=== PATIENT | female | born 1990 | race Caucasian/White ===

== ENCOUNTER 2018-08-28 14:11 | Emergency (ER) | payer MEDICAID ==
[~2018-08-28] VITALS: Ht 167.6 cm; Wt 87.5 kg
[~2018-08-28 14:11] MED LIST: PHEN-786 PO
[2018-08-28 15:01] LABS: BASOPHILS % (AUTO) 0.6 % (0-1); EOSINOPHILS # (AUTO) 0.1 X10'3 (0-0.9); EOSINOPHILS % (AUTO) 0.9 % (0-6); HEMATOCRIT 41.6 % (35.0-45.0); HEMOGLOBIN 13.6 g/dl (12.0-16.0); LYMPHOCYTES # (AUTO) 2.3 X10'3 (1.1-4.8); LYMPHOCYTES % (AUTO) 29.3 % (21-51); MEAN CORPUSCULAR HEMOGLOBIN 28.5 PG (27.0-31.0); MEAN CORPUSCULAR HGB CONC 32.7 % (33.0-36.5); MEAN CORPUSCULAR VOLUME 87.1 FL (78-98); MEAN PLATELET VOLUME 8.3 FL (7.4-10.4); MONOCYTES # (AUTO) 0.3 X10'3 (0-0.9); MONOCYTES % (AUTO) 3.8 % (2-12); NEUTROPHILS # (AUTO) 5.3 X10'3 (1.8-7.7); NEUTROPHILS % (AUTO) 65.4 % (42-75); PLATELET COUNT 379 X10'3 (140-440); RED BLOOD COUNT 4.77 X10'6 (4.20-5.60); RED CELL DISTRIBUTION WIDTH 13.7 % (11.5-14.5)
[2018-08-28 15:16] LABS: PARTIAL THROMBOPLASTIN TIME 28 SECONDS (22-32); PROTHROMBIN TIME 10.6 SECONDS (9.0-12.0)
[2018-08-28 15:17] LABS: ALANINE AMINOTRANSFERASE 23 U/L (12-78); ALBUMIN 3.8 G/DL (3.4-5.0); ALBUMIN/GLOBULIN RATIO 0.9 (1.1-1.5); ALKALINE PHOSPHATASE 70 IU/L (46-116); ANION GAP 12 (8-16); ASPARTATE AMINO TRANSFERASE 15 U/L (10-37); BILIRUBIN,TOTAL 0.3 MG/DL (0.1-1.0); BLOOD UREA NITROGEN 14 MG/DL (7-18); BUN/CREATININE RATIO 18.9 (6.6-38.0); CHLORIDE 101 MMOL/L (99-107); CREATININE 0.74 MG/DL (0.40-0.90); GLUCOSE 137 MG/DL (70-104); POTASSIUM 3.4 MMOL/L (3.5-5.1); SODIUM 139 MMOL/L (135-145); TOTAL CARBON DIOXIDE 25.7 MMOL/L (24-32); TOTAL PROTEIN 7.9 G/DL (6.4-8.2); eGFR > 90 ML/MIN
[2018-08-28] MEDS ORDERED: sucralfate 1 gm tablet PO ONE (15:35)
[2018-08-28] MEDS ORDERED: mag hydrox/Alum hydrox/simeth 30ml oral suspension PO ONE (15:35)
[2018-08-28] MEDS ORDERED: LIDOcaine Viscous 15ml cup PO ONE (15:35)
[2018-08-28] MEDS ORDERED: famotidine 20mg tablet PO ONE (15:35)
[2018-08-28 15:59] VITALS: BP 112/79
== END 2018-08-28 16:02 | disposition home or self-care (01) ==
LOC: ER 14:12
DX: R10.13 Epigastric pain (principal); F17.200 Nicotine dependence, unspecified, uncomplicated; Z88.6 Allergy status to analgesic agent; Z79.899 Other long term (current) drug therapy
CPT/HCPCS: 36415; 71045; 80053; 84484; 85025; 85610; 85730; 93005; 99284

== ENCOUNTER 2021-11-03 19:14 | Emergency (ER) | payer MEDICAID ==
[~2021-11-03] VITALS: Ht 167.6 cm; Wt 94.0 kg
[2021-11-03 19:38] VITALS: BP 141/90
[2021-11-03] MEDS ORDERED: AMOX500C2 PO (19:59)
[2021-11-03] MEDS ORDERED: IBUP-1986 PO (19:59)
[2021-11-03] MEDS ORDERED: HYDROcodone/acetaminophen 10/325mg tab PO ONE (20:00)
[2021-11-03] MEDS ORDERED: amoxicillin 250mg capsule PO ONE (20:00)
== END 2021-11-03 20:13 | disposition home or self-care (01) ==
LOC: ER 19:14
DX: K08.89 Other specified disorders of teeth and supporting structures (principal); K02.9 Dental caries, unspecified; F41.9 Anxiety disorder, unspecified; Z90.49 Acquired absence of other specified parts of digestive tract; Z88.8 Allergy status to other drugs, medicaments and biological substances; Z79.2 Long term (current) use of antibiotics; Z79.899 Other long term (current) drug therapy
CPT/HCPCS: 99283

== ENCOUNTER 2022-01-01 10:24 | Emergency (ER) | payer MEDICAID ==
[~2022-01-01] VITALS: Ht 167.6 cm; Wt 95.0 kg
[~2022-01-01 10:24] MED LIST changes: +IBUP-1986 PO
[2022-01-01 10:35] VITALS: BP 130/80
[2022-01-01] MEDS ORDERED: ibuprofen tablet 400 MG TABLET PO ONE (11:50)
== END 2022-01-01 13:04 | disposition home or self-care (01) ==
LOC: ER 10:24
DX: S93.402A Sprain of unspecified ligament of left ankle, initial encounter (principal); F41.9 Anxiety disorder, unspecified; F17.210 Nicotine dependence, cigarettes, uncomplicated; Z90.49 Acquired absence of other specified parts of digestive tract; W19.XXXA Unspecified fall, initial encounter; Y93.89 Activity, other specified; Y92.89 Other specified places as the place of occurrence of the external cause; Y99.8 Other external cause status
CPT/HCPCS: 73590; 73610; 99284

== ENCOUNTER 2022-09-04 06:48 | Day surgery (SDC) | payer MEDICAID ==
[2022-09-01 10:27] LABS: BASOPHILS % (AUTO) 0.6 % (0-1); EOSINOPHILS # (AUTO) 0.1 X10'3 (0-0.9); EOSINOPHILS % (AUTO) 1.8 % (0-6); LYMPHOCYTES # (AUTO) 2.3 X10'3 (1.1-4.8); LYMPHOCYTES % (AUTO) 29.6 % (21-51); MEAN CORPUSCULAR HEMOGLOBIN 22.6 PG (27.0-31.0); MEAN CORPUSCULAR HGB CONC 31.1 g/dL (33.0-36.5); MEAN CORPUSCULAR VOLUME 72.8 FL (78-98); MEAN PLATELET VOLUME 7.4 FL (7.4-10.4); MONOCYTES # (AUTO) 0.5 X10'3 (0-0.9); MONOCYTES % (AUTO) 6.2 % (2-12); NEUTROPHILS # (AUTO) 4.8 X10'3 (1.8-7.7); NEUTROPHILS % (AUTO) 61.8 % (42-75); PRE OP HEMATOCRIT 34.9 % (35.0-45.0); PRE OP PLATELET COUNT 378 X10'3 (140-440); RED CELL DISTRIBUTION WIDTH 17.9 % (11.5-14.5)
[2022-09-01 10:29] LABS: PRE OP HEMOGLOBIN 10.9 g/dL (12.0-16.0)
[2022-09-01 11:10] LABS: HCG SERUM QL NEGATIVE
[2022-09-01 11:28] LABS: ALBUMIN 3.9 G/DL (3.4-5.0); ALBUMIN/GLOBULIN RATIO 1.1 (1.1-1.5); ALKALINE PHOSPHATASE 84 IU/L (46-116); BLOOD UREA NITROGEN 11 MG/DL (7-18); BUN/CREATININE RATIO 17.7 (6.6-38.0); CALCIUM 8.6 MG/DL (8.5-10.1); CHLORIDE 103 MMOL/L (99-107); CREATININE 0.62 MG/DL (0.40-0.90); PRE OP ALT 30 U/L (30-65); PRE OP ANION GAP 9 (8-16); PRE OP AST 24 U/L (10-37); PRE OP BILIRUB, TOTAL 0.3 MG/DL (0.0-1.0); PRE OP GLUCOSE 91 MG/DL (70-104); PRE OP SODIUM 137 MMOL/L (135-145); TOTAL CARBON DIOXIDE 25.5 MMOL/L (24-32); TOTAL PROTEIN 7.6 G/DL (6.4-8.2); eGFR > 90 ML/MIN
[~2022-09-04] VITALS: Ht 167.6 cm; Wt 93.1 kg
[2022-09-04] VITALS (9 sets, daily range): BP systolic 94–127; BP diastolic 52–79
[~2022-09-04 06:48] MED LIST changes: -IBUP-1986 PO; +NO HOME MEDS; -PHEN-786 PO; +albuterol 2.5 MG/3 ML nebule NEB ONE; +ceFAZolin inj. 2,000 MG in dextrose 5%-water 100 ML IV ONE; +famotidine 20mg tablet PO ONE; +ringers solution, lacted 1,000 ML IV SCH
--- NOTE | 2022-09-04 06:55 | NUR ---
PREPARED PATIENT FOR SURGERY, VITAL SIGNS STABLE, IV STARTED, PT IS EXTREMELY ANXIOUS. DR GUPTA AT BEDSIDE, PT SEEN BY SURGEON, TRANSPORTED TO SURGERY IN STABLE CONDITION
[2022-09-04] MEDS ORDERED: labetalol 20mg/4ml (5mg/ml) syringe IV PRN (07:25)
[2022-09-04] MEDS ORDERED: proCHLORperazine 10 MG/2 ml inj IV PRN (07:25)
[2022-09-04] MEDS ORDERED: morphine 4 MG/ML inj SYRINge IV PRN (07:25)
[2022-09-04] MEDS ORDERED: ringers solution, lacted 1,000 ML IV SCH (07:25)
[2022-09-04] MEDS ORDERED: hydrALAZINE 20mg/ml inj. IV PRN (07:25)
[2022-09-04] MEDS ORDERED: morphine 2 MG/ML inj. syringe IV PRN (07:25)
[2022-09-04] MEDS ORDERED: ondansetron/PF 4mg/2ml inj IV PRN (07:25)
[2022-09-04] MEDS ORDERED: acetaminophen 1,000mg/100ml IV 100 ML IV PRN (07:25)
[2022-09-04] MEDS ORDERED: ketorolac trometh. 30mg/ml inj. IV ONE (07:25)
[2022-09-04] MEDS ORDERED: meperidine/PF 25mg/ml syringe IV PRN ×3 (07:25)
[2022-09-04] MEDS ORDERED: BUPIVAcaine 0.25% w/Epi /PF 30ml vial ONE (08:39)
[2022-09-04] MEDS ORDERED: sevoflurane 250ml liquid IH ONE (08:52)
[2022-09-04] MEDS ORDERED: midazolam 1 mg/ML 2ml injection ONE (08:55)
[2022-09-04] MEDS ORDERED: FENTANYL CITRATE/PF 50 MCG/1 ML VIAL ONE (08:55)
[2022-09-04] MEDS ORDERED: BUPIVAcaine HCl 0.25%/EPInephrine 1:200,000 inj. 10 ML VIAL IM ONE (09:20)
[2022-09-04] MEDS ORDERED: propofol inj 20 ML IV ONE (09:28)
[2022-09-04] MEDS ORDERED: LIDOcaine 2% (20mg/ml) 5ml vial ONE (09:28)
[2022-09-04] MEDS ORDERED: ondansetron/PF 4mg/2ml inj ONE (09:28)
[2022-09-04] MEDS ORDERED: dexamethasone sod phosphate 4mg/ml inj. ONE (09:28)
[2022-09-04] MEDS ORDERED: rocuronium 10mg/ml inj IV ONE (09:28)
[2022-09-04] MEDS ORDERED: glycopyrrolate 0.2mg/ml inj ONE (09:48)
[2022-09-04] MEDS ORDERED: neostigmine methylsulfate 1 MG/ML 10ml vial ONE (09:49)
--- NOTE | 2022-09-04 09:59 | NUR ---
Received from OR via , accompanied by Anesthesiologist ALONSO AND OR NURSE and report given by Anesthesiolgist. PT IS DROWSY BUT RESPONDS TO VERBAL STIMULI. C/O OF PAIN TO ABDOMEN AT A 9; KETORALAC GIVEN. DEMEROL GIVEN FOR SHIVERS. VSS. ONE [facility] SITE WITH BANDAID; CDI Addendum: 09/04/22 at 1032 by Domonique Kaur RN Amended: Links added.
--- NOTE | 2022-09-04 11:15 | NUR ---
GETTING PT READY FOR DISCHARGE AND STATES C/O NAUSEA. ZOFRAN GIVEN. CONTINUE TO ASSESS. Addendum: 09/04/22 at 1123 by Domonique Kaur RN Amended: Links added.
--- NOTE | 2022-09-04 11:39 | NUR ---
ALL DISCHARGE CRITERIA HAS BEEN MET. VSS, PAIN AT A TOLERABLE LEVEL, VOIDING ABLE TO SAFELY AMBULATE AND TRANSFER SELF. IV TAKEN OUT WITHOUT ANY COMPLICATIONS. ALL DISCHARGE INSTRUCTIONS COVERED WITH PATIENT AND ALL QUESTIONS ANSWERED. PATIENT TAKEN OUT VIA WHEELCHAIR TO PERSONAL VEHICLE WHERE FAMILY/FRIEND DROVE PATIENT HOME. Addendum: 09/04/22 at 1154 by Domonique Kaur RN Amended: Links added.
== END 2022-09-04 11:39 | disposition home or self-care (01) ==
LOC: PRE-OP 06:48
PROVIDERS: ATTEND Obstetrics & Gynecology
DX: Z30.2 Encounter for sterilization (principal); N92.0 Excessive and frequent menstruation with regular cycle; F41.9 Anxiety disorder, unspecified; G43.909 Migraine, unspecified, not intractable, without status migrainosus; Z79.899 Other long term (current) drug therapy; Z98.890 Other specified postprocedural states; F17.210 Nicotine dependence, cigarettes, uncomplicated; Z72.89 Other problems related to lifestyle; Z88.8 Allergy status to other drugs, medicaments and biological substances
CPT/HCPCS: 36415; 58563; 58670; 80053; 82948; 84703; 85025; J0690; J1100; J1885; J2175; J2250; J2405; J2704; J2710; J3010; J3490; J7060; J7120; S0020; Z7506; Z7508; Z7512; A4618; A4649; A7000

== ENCOUNTER 2025-07-08 21:05 | Emergency (ER) | payer MEDICAID, SELFPAY ==
[~2025-07-08] VITALS: Ht 167.6 cm; Wt 97.0 kg
[~2025-07-08 21:05] MED LIST changes: -albuterol 2.5 MG/3 ML nebule NEB ONE; -ceFAZolin inj. 2,000 MG in dextrose 5%-water 100 ML IV ONE; -famotidine 20mg tablet PO ONE; -ringers solution, lacted 1,000 ML IV SCH
[2025-07-08 21:13] VITALS: BP 146/89; PULSE 99; RESP 15; O2SAT 100
--- NOTE | 2025-07-08 21:15 | ELECTROCARDIOGRAPH REPORT ---
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
[2025-07-08 21:39] LABS: MEAN PLATELET VOLUME 8.3 FL (7.4-10.4); RED CELL DISTRIBUTION WIDTH 13.3 % (11.5-14.5)
[2025-07-08 21:58] LABS: CREATININE 0.70 MG/DL (0.40-0.90); TOTAL CARBON DIOXIDE 21.6 MMOL/L (24-32); eCRCL 104 ML/MIN; eGFR > 90 ML/MIN
--- NOTE | 2025-07-08 22:13 | RADIOLOGY REPORT ---
CHEST RADIOGRAPH Indication: CP Technique: Single frontal view of the chest was obtained COMPARISON: None FINDINGS: Lungs and pleural spaces are clear. Cardiac silhouette and edgardo are within normal limits. Bones and soft tissues demonstrate no significant abnormality. IMPRESSION: No acute disease.
--- NOTE | 2025-07-08 22:28 | Physician Documentation ---
History of Present Illness General Chief Complaint: Abdominal Pain Stated Complaint: CP/SOB Time Seen by MD: 22:27 Primary Medical Doctor: denisa murrell History of Present Illness Initial Comments 35-year-old female complains of stomach pain that radiates has been to her chest into her back states he has been going on for last 4-5 hours. Patient states that she has had this before and she is out of her pain toes of prior. Patient states she normally takes Protonix and has been out of it for the last two weeks. Patient's denying any fevers she states she does have some slight pleuritic chest pain and a slight cough patient is a smoker. Patient has no history of DVTs, she is not on any hormone therapy. The patient denies any nausea vomiting or diarrhea. Patient's symptoms are mild to moderate and persistent Medication Reconciliation Allergies: Coded Allergies: tramadol (Unverified Allergy, Unknown, 07/08/25) Scheduled Pantoprazole Sodium (PROTONIX tablet), 1 TAB PO DAILY Miscellaneous Medications Home Med List (No Home Medications), (Reported) Past Medical History Past Medical History: Anxiety Past Surgical History: appendectomy Smoking: Cigarettes Alcohol Use: None Drug Use: none Lives In: Home Occupation: employed Review of Systems All Other Systems at this time: Reviewed and Negative Physical Exam Physical Exam Vital Signs: Temperature: 97.6, Source: Temporal, Heart Rate: 99, Respiratory Rate: 15, BP: 146/89, Pulse Oximetry: 100, Weight: 97.000 Physical Exam VITALS: Reviewed and as above. GENERAL: Alert, no apparent distress. HEENT: Normocephalic, atraumatic, PERRL, EOMI, dry mucosa, no erythema RESPIRATORY: Lungs clear, normal breath sounds, no respiratory distress. CHEST: No accessory muscle use, no retractions CV: Regular rate, rhythm, no edema, no murmur, No: JVD GI: Soft, slight epigastric abdominal tenderness, bowels sounds present, no rebound, guarding, or rigidity BACK: No CVA tenderness, or swelling MUSCULOSKELETAL: No deformities, no edema SKIN: Warm and dry, no rash NEURO: Oriented x4, No motor or sensory deficit PSYCH: Normal mood and affect, no agitation Progress Results/Orders Results/Orders Orders - GENIE MICHEL MD Chest,Single View (07/08/25 21:36) Urinalysis, Cult If Indicated (07/08/25 21:17) Hcg, Ur Ql (07/08/25 21:17) Procalcitonin (07/08/25 22:31) Pantoprazole Tablet (Protonix) (07/08/25 22:56) Completed Orders - OHLFSGENIE MD Electrocardiogram (07/08/25 21:06) Chest,Single View (07/08/25 21:36) Cbc/Diff (07/08/25 21:17) BMP (07/08/25 21:17) Lipase (07/08/25 21:17) CMP (07/08/25 21:17) Vital Signs 07/08/25 21:13 Temp 97.6 Pulse 99 Resp 15 B/P (MAP) 146/89 Pulse Ox 100 Laboratory Tests Test 07/08/25 21:32 White Blood Count 13.5 H Red Blood Count 4.81 Hemoglobin 15.1 Hematocrit 44.8 Mean Corpuscular Volume 93.2 Mean Corpuscular Hemoglobin 31.3 H Mean Corpuscular Hemoglobin Concent 33.6 Red Cell Distribution Width 13.3 Platelet Count 294 Mean Platelet Volume 8.3 Neutrophils (%) (Auto) 61.6 Lymphocytes (%) (Auto) 31.4 Monocytes (%) (Auto) 5.3 Eosinophils (%) (Auto) 1.3 Basophils (%) (Auto) 0.4 Neutrophils # (Auto) 8.3 H Lymphocytes # (Auto) 4.2 Monocytes # (Auto) 0.7 Eosinophils # (Auto) 0.2 Basophils # (Auto) 0.1 CBC Comment Sodium Level 139 Potassium Level 3.6 Chloride Level 106 Carbon Dioxide Level 21.6 L Anion Gap 11 Blood Urea Nitrogen 11 Creatinine 0.70 Estimated GFR/1.73 m2 > 90 BUN/Creatinine Ratio 15.7 Glucose Level 151 H Calcium Level 9.0 Total Bilirubin 0.1 Aspartate Amino Transf (AST/SGOT) 16 Alanine Aminotransferase (ALT/SGPT) 24 Alkaline Phosphatase 72 Total Protein 7.4 Albumin 3.8 Globulin 3.6 Albumin/Globulin Ratio 1.1 Lipase 42 Chemistry Comments EKG/XRAY/CT/US/VASC/MRI Chest X-Ray : Additional Comments Patient: BRITTNY GIBSON Medical Record: [id number] [facility] : 1990, Age: 35 Sex: Female Location: ER Patient Status: [facility] ER Service Date/Time: 07/08/252135 Ordering Physician: GENIE MICHEL MD Exam: CHEST,SINGLE VIEW CHEST RADIOGRAPH Indication: CP Technique: Single frontal view of the chest was obtained COMPARISON: None FINDINGS: Lungs and pleural spaces are clear. Cardiac silhouette and edgardo are within normal limits. Bones and soft tissues demonstrate no significant abnormality. IMPRESSION: No acute disease. Electronically Signed by:ALEXIS PRIEST MD Date & Time: 07/08/252209 Dictated by: ALEXIS PRIEST MD Dictation date and time: 07/08/252209 Primary Care Provider: NO PRIMARY CARE PROVIDER cc: GENIE MICHEL MD ~ Medical Decision Making Additional information obtaine: old records Findings The patient is 12 lead EKG demonstrates a sinus bradycardia rate of 57 with a normal axis there was no significant ST-elevation or ST-depression. The patient's EKG was interpreted as a borderline EKG as she does have some nonspecific ST-T abnormalities. Time of the EKG was 2113 was interpreted at 9:15 p.m.. The patient presents with epigastric abdominal pain that radiates into her her chest she does describe some slight pleurisy but no significant shortness of breath she has a significant risk factors other than smoking for pulmonary embolisms she does think that this is more GI related she thinks it is related to her GERD that she has had in the past. The patient is not significantly tender over her gallbladder labs were reviewed and they are fairly unremarkable. The patient was offered a GI cocktail but refused that she just wants a dose of Protonix prescription for Protonix the patient will receive both of these. Prior hospitalizations has been reviewed pulse oximetry was interpreted as adequate normal and her environmental monitoring specialist was interpreted as a sinus rhythm Differential Diagnosis Cardiac disease, pulmonary embolism, peptic ulcer disease, cholecystitis, biliary disease, gastritis. Departure Time of Disposition: 22:56 Disposition: 01 HOME / SELF CARE / HOMELESS Impression: Primary Impression: Abdominal pain Qualified Codes: R10.13 - Epigastric pain Additional Impression: Gastroesophageal reflux Qualified Codes: K21.9 - Gastro-esophageal reflux disease without esophagitis Discharge Instructions: Abdominal Pain (Nonspecific) Referrals: NO PRIMARY CARE PROVIDER (PCP) Prescriptions Pantoprazole Sodium (PROTONIX tablet) 40 Mg Tablet.dr 1 TAB PO DAILY for 30 Days, #30 TAB 0 Refills Prov: GENIE MICHEL MD 07/08/25 GENIE MICHEL MD Jul 08, 2025 22:28
[2025-07-08] MEDS ORDERED: pantoprazole 40mg Tablet.DR PO STA (22:56)
[2025-07-08] MEDS ORDERED: PANT-47 PO (22:56)
[2025-07-08 23:07] VITALS: TEMP 97.6
== END 2025-07-08 23:08 | disposition left against medical advice (07) ==
LOC: ER 21:05
DX: K21.9 Gastro-esophageal reflux disease without esophagitis (principal); R10.13 Epigastric pain; F41.9 Anxiety disorder, unspecified; F17.210 Nicotine dependence, cigarettes, uncomplicated; Z90.49 Acquired absence of other specified parts of digestive tract; Z88.5 Allergy status to narcotic agent; Z79.899 Other long term (current) drug therapy
CPT/HCPCS: 36415; 71045; 80053; 83690; 84145; 85025; 93005; 99285